=== PATIENT | female | born 1965 | race Caucasian/White ===

== ENCOUNTER 2017-01-25 18:35 | Emergency (ER) | payer BC ==
[~2017-01-25] VITALS: Ht 170.2 cm; Wt 77.0 kg
[2017-01-25 18:38] VITALS: BP 139/75; PULSE 80; RESP 22; TEMP 98.2; O2SAT 98
[2017-01-25] MEDS ORDERED: AUGM875T3 PO (19:14)
[2017-01-25] MEDS ORDERED: PROPARACAINE HCL 0.5% OPHT SOLN 15 ML BTL EACH EYE ONE (19:15)
[2017-01-25] MEDS ORDERED: AMOXICILLIN/CLAVULANATE K 875 MG TAB PO ONE (19:15)
[2017-01-25] MEDS ORDERED: TETANUS/DIPHTHERIA TOXOID ADULT 0.5 ML VIAL IM ONE (19:15)
--- NOTE | 2017-01-25 19:20 | PD ---
HPI Chief Complaint: Eye Problems/Injury Time Seen by Provider: 19:09 Travel History International Travel<30 days: No Contact w/Intl Traveler<30days: No Traveled to known affect area: No History of Present Illness HPI 51-year-old white female presents to emergency department for evaluation of a cat scratch. She states that just prior to arrival her house cat scratched her in the right face. It was very close the eye and would like to be evaluated. She denies any ocular pain. No blurred vision or double vision. She has not had a tetanus shot over 5 years. She states the skin around her right eye is burning. She does not wear glasses or contacts. Pain is mild. PFSH Past Medical History Narrative Medical Gallstones Cancer: No Cardiovascular Problems: No Diabetes: No Glaucoma: No Hepatitis: No Hiatal Hernia: No Hypertension: No Respiratory: No Thyroid Disease: No Tetanus Vaccination: > 5 Years ?: Not : 2 Para: 2 Dilation and Curettage (D&C): Yes (2007) Past Surgical History Narrative Surgical Cholecystectomy Cholecystectomy: Yes Pacemaker: No Other Surgery: Yes Social History Alcohol Use: No Tobacco Use: No Substance Use: No Allergies-Medications (Allergen,Severity, Reaction): Coded Allergies: No Known Allergies (Unverified Adverse Reaction, Unknown, 01/25/17) Reported Meds & Prescriptions Reported Meds & Active Scripts Active Augmentin (Amoxicillin-Clavulanate) 875-125 Mg Tab 1 Tab PO BID Review of Systems General / Constitutional: No: Fever Eyes: No: Diploplia, Blurred Vision, Drainage, Redness, Foreign Body Sensation , Pain, Tearing, Visual changes, Blindness HENT: No: Headaches Cardiovascular: No: Chest Pain or Discomfort Respiratory: No: Shortness of Breath Gastrointestinal: No: Abdominal Pain Genitourinary: No: Dysuria Musculoskeletal: No: Pain Skin: No Rash Neurologic: No: Weakness Psychiatric: No: Depression Endocrine: No: Polydipsia Hematologic/Lymphatic: No: Easy Bruising Physical Exam Narrative GENERAL: Well-developed, well-nourished in no acute distress. Nontoxic appearing. HEAD: Normocephalic, patient has superficial scratches around the right lateral eye EYES: Pupils equal round and reactive. Extraocular motions intact. No scleral icterus. No injection or drainage. ENT: TMs clear without erythema. The external auditory canals clear. Nose: clear . Posterior pharynx is pink and moist. No tonsillar edema or exudate. Uvula midline. Airway patent. Fluorescein stain is negative for corneal abrasion. Lids are flipped and no foreign body seen. NECK: Trachea midline.Supple, nontender, moves head freely. No central bony tenderness or spasm. CARDIOVASCULAR: Regular rate and rhythm without murmurs, gallops, or rubs. RESPIRATORY: Clear to auscultation. Breath sounds equal bilaterally. No wheezes , rales, or rhonchi. GASTROINTESTINAL: Abdomen soft, non-tender, nondistended. No hepato-splenomegaly , or palpable masses. No guarding. EXTREMITIES: No clubbing, cyanosis, or edema. No joint tenderness, effusion, or edema noted. BACK: Nontender without deformity or crepitance. No flank tenderness. Data Data Last Documented VS Vital Signs Date Time Temp Pulse Resp B/P (MAP) Pulse Ox O2 Delivery O2 Flow Rate FiO2 01/25/17 18:38 98.2 80 22 139/75 (96) 98 Orders Orders Proparacaine 0.5% Opth Soln (Alcaine 0.5 (01/25/17 19:15) Tetanus/Diphtheria Tox Adult (Tetanus/Di (01/25/17 19:15) Amoxicil-Clavulanate (Augmentin) (01/25/17 19:15) MDM Medical Decision Making Medical Screen Exam Complete: Yes Emergency Medical Condition: Yes Medical Record Reviewed: Yes Differential Diagnosis MDM: High Differential diagnoses: Fracture, sprain, strain, dislocation, contusion, neurovascular injury, CAT Scratch, CAT bite Narrative Course Patient's tetanus status updated. She is given Augmentin 875 by mouth. There is no evidence of an ocular injury. She has a scratch around the face. No deep injury. This is Scratch right face Diagnosis Primary Impression: cat scratch right face Patient Instructions: General Instructions Additional Instructions: Rest. Elevation. Tylenol and Advil for pain. Daily wound care with soap, water, Neosporin. Augmentin. Follow-up with a medical doctor in 3-5 days for recheck. Return to the ER if any problems. Med/Other Pt SpecificInfo: Prescription(s) given, Wound Care Scripts Amoxicillin-Clavulanate (Augmentin) 875-125 Mg Tab 1 TAB PO BID for Infection, #14 TAB 0 Refills Prov: Abraham Catalan MD 01/25/17 Disposition: 01 DISCHARGE HOME Condition: Stable Brent Rowan Jan 25, 2017 19:20
== END 2017-01-25 19:40 | disposition home or self-care (01) ==
LOC: NEPK 18:35
DX: S00.81XA Abrasion of other part of head, initial encounter (principal); Z23 Encounter for immunization; W55.03XA Scratched by cat, initial encounter
CPT/HCPCS: 90471; 90714

== ENCOUNTER → 2017-06-24 | Outpatient (CLI) | payer BC ==
[~2017-06-24] MED LIST: ALBU6.7H INH; AUGM875T3 PO; CHOL500022 PO; VITA500S3 SL
--- NOTE | 2017-06-25 16:14 | EKG ---
Date Performed: 06/24/2017 Time Performed: 13:39:50 PTAGE: 52 years EKG: SINUS BRADYCARDIA BORDERLINE ECG NO PREVIOUS TRACING DOCTOR: Derrick Castellanos Interpretating Date/Time 06/25/2017 16:10:04
== END ==
LOC: CPRE 13:04
PROVIDERS: ATTEND Obstetrics & Gynecology
DX: Z01.810 Encounter for preprocedural cardiovascular examination (principal); N92.0 Excessive and frequent menstruation with regular cycle; D50.0 Iron deficiency anemia secondary to blood loss (chronic); N83.202 Unspecified ovarian cyst, left side; R94.31 Abnormal electrocardiogram [ECG] [EKG]
CPT/HCPCS: 93005

== ENCOUNTER 2017-06-26 10:13 | Observation (INO) | payer BC ==
--- NOTE | 2017-06-25 12:14 | MH ---
cc: José Luis Pride MD DATE OF ADMISSION: 06/26/2017 ADMITTING DIAGNOSIS: Menorrhagia, dysmenorrhea and anemia with a left ovarian cyst and probable endometrial polyps. HISTORY OF PRESENT ILLNESS: The patient is a 52-year-old white female, para 2-0-0-2, who has had recurrent menorrhagia, dysmenorrhea, refractory to medical therapy and previous conservative surgery. She is now admitted for surgical treatment. PAST SURGICAL HISTORY: 1. She had laparoscopic cholecystectomy 02/12/2016. 2. She had hysteroscopy, D and C, laparoscopy in 2008 and for a while, did well on OCPs. Her findings at that time were consistent with adenomyosis. 3. Additional surgery included nasal fracture repair at age 18. 4. Right third finger cyst at age 18. MEDICATIONS: Vitamins. ALLERGIES: NONE. TRANSFUSIONS: None. SERIOUS MEDICAL ILLNESS: History of benign hematuria dated about 2005. OB HISTORY: Two vaginal deliveries. SOCIAL HISTORY: x 24 years. [place] [facility]. Alcohol, tobacco and drugs are none. FAMILY HISTORY: Noncontributory. PHYSICAL EXAMINATION: GENERAL: A well-nourished, well-developed white female. VITAL SIGNS: Stable: HEENT: Exam is normal. CHEST: Clear. HEART: Regular rate. BREASTS: Symmetrical. ABDOMEN: Benign. PELVIC: Vagina is normal. Cervix is normal. The uterus is about 12 weeks' size. Adnexa nonpalpable. ASSESSMENT: As above. PLAN: She is now admitted for dilation and curettage, frozen section, laparoscopy with probable laparoscopic-assisted supracervical hysterectomy, bilateral salpingo-oophorectomy, possible total abdominal hysterectomy with bilateral salpingo-oophorectomy. We have discussed the need for postoperative estrogen replacement therapy. She would like to proceed. The risks, benefits and complications including but not limited to , infection, bleeding, transfusion were explained and accepted. MD SANDIE Roque/SB , 02:01 PM , 02:22 PM
[~2017-06-26] VITALS: Ht 170.2 cm; Wt 79.0 kg
[2017-06-26] MEDS ORDERED: SODIUM CHLORID 0.9% 500 ML IV PRN (11:45)
[2017-06-26] MEDS ORDERED: LACTATED RINGER'S 1000 ML IV PRN (11:45)
[2017-06-26] MEDS ORDERED: POVIDONE IODINE 5% (ANTISEPSIS KIT) 4 APPLICATIONS EACH NARE PRN (11:45)
[2017-06-26] MEDS ORDERED: CHLORHEXIDINE GLUCONATE 2 % 1 PACK (2 CLOTHS) TOPICAL PRN (11:45)
[2017-06-26] MEDS ORDERED: ACETAMINOPHEN 1000 MG/100 ML 100 ML IV SCH (11:45)
[2017-06-26] MEDS ORDERED: METOPROLOL TARTRATE 25 MG TAB PO PRN (11:45)
[2017-06-26] MEDS ORDERED: KETOROLAC TROMETHAMINE 30 MG/ML (IVP) VIAL IV PUSH ONE (12:00)
[2017-06-26] MEDS ORDERED: LACTATED RINGER'S 1000 ML INJ 2,000 ML IV ONE (12:00)
[2017-06-26] MEDS ORDERED: DEXAMETHASONE SOD PHOS 4 MG/ML VIAL IV ONE (12:00)
[2017-06-26] MEDS ORDERED: PROPOFOL 200 MG/20 ML AMP IV ONE (12:00)
[2017-06-26] MEDS ORDERED: GLYCOPYRROLATE 1 MG/5 ML SYRINGE IV PUSH ONE (12:00)
[2017-06-26] MEDS ORDERED: PHENYLEPH/NS 1000 MCG/10 ML SYR IV ONE (12:00)
[2017-06-26] MEDS ORDERED: ROCURONIUM INJ 50 MG/5 ML SYRINGE IV PUSH ONE (12:00)
[2017-06-26] MEDS ORDERED: ePHEDrine/NS 25 MG/5 ML SYRINGE IV ONE (12:00)
[2017-06-26] MEDS ORDERED: NEOSTIGMINE 5 MG/5 ML SYRINGE IV PUSH ONE (12:00)
[2017-06-26] MEDS ORDERED: ONDANSETRON HCL 4 MG/2 ML VIAL IV PUSH ONE (12:00)
[2017-06-26] MEDS ORDERED: LIDOCAINE HCL 1% PF 5 ML SYRINGE OTHER ONE (12:00)
[2017-06-26] MEDS ORDERED: CEFAZOLIN INJ 2,000 MG in SODIUM CHLORIDE 0.9% INJ 100 ML IV SCH (12:15)
[2017-06-26] MEDS ORDERED: KETAMINE HCL 500 MG/10 ML VIAL ONE (13:56)
[2017-06-26] MEDS ORDERED: D5-1/2 NS + KCL 20 MEQ INJ 1,000 ML IV SCH (15:21)
[2017-06-26] MEDS ORDERED: DOCUSATE SODIUM 100 MG CAP PO SCH (15:30)
[2017-06-26] MEDS ORDERED: HYDROmorphone HCL PF 1 MG/ML VIAL IV PUSH PRN (15:30)
[2017-06-26] MEDS ORDERED: diphenhydrAMINE HCL 25 MG CAP PO PRN (15:30)
[2017-06-26] MEDS ORDERED: ZOLPIDEM TARTRATE 5 MG TAB PO PRN (15:30)
[2017-06-26] MEDS ORDERED: PROMETHAZINE INJ 25 MG/ML VIAL IM PRN (15:30)
[2017-06-26] MEDS ORDERED: ONDANSETRON HCL 4 MG/2 ML VIAL IV PUSH PRN (15:30)
[2017-06-26] MEDS ORDERED: MIDAZOLAM HCL 2 MG/2 ML VIAL ONE (15:55)
[2017-06-26] MEDS ORDERED: *HYDROmorphone PF 1 MG VIAL PERIprocedural Use ONLY ONE ×2 (16:00→16:13)
[2017-06-26] MEDS ORDERED: *MEPERIDINE 25 MG INJ VIAL PERIprocedural Use ONLY ONE (16:08)
--- NOTE | 2017-06-26 16:10 | MP ---
cc: José Luis Pride MD DATE OF OPERATION: 06/26/2017 PREOPERATIVE DIAGNOSES: Menorrhagia, dysmenorrhea, and anemia. POSTOPERATIVE DIAGNOSES: Menorrhagia, dysmenorrhea, and anemia. PROCEDURE PERFORMED: D and C, frozen section followed by a laparoscopic-assisted supracervical hysterectomy, bilateral salpingo-oophorectomy. ANESTHESIA: General, ET. SURGEON: José Luis Pride MD SALES SUPPORT ASSOCIATE: MISHA Rosales ESTIMATED BLOOD LOSS FOR THE PROCEDURE: 900 mL. FLUIDS: 2.3 liters crystalloid. OBJECTIVE FINDINGS: Following induction of adequate general endotracheal anesthesia, the patient was prepped and draped supine on the operating table in dorsal lithotomy in the usual sterile fashion with the bladder being drained by Prabhakar catheterization. Exam under anesthesia revealed about a 12-week sized uterus. Adnexa not palpable. A heavy weighted speculum was placed on the posterior fornix of the vagina. The anterior lip of the cervix was grasped with a single-tooth tenaculum. The cervix and uterus sounded to 9 cm. The cervix was then dilated to a #20 Hanks dilator. The endocervical curettings were obtained with a small serrated curette for permanent study, endometrium with a small sharp curette for frozen section. The cervical tenaculum sites were sutured with 3-0 chromic, the vaginal instruments were removed, the paperback machine operator's gloves were changed. The abdomen was opened through a 3 cm curving infraumbilical incision using the knife cut down through the skin to the fascia. The fascia was opened transversely. The peritoneum was opened with blunt dissection finger tip and the mini GelPort placed, laparoscope inserted. A 5 port was placed in the left lower quadrant, AirSeal in the right lower quadrant. The uterus was about 12-weeks sized, symmetrically enlarged consistent with adenomyosis. Tubes and ovaries were normal. [place]-de-sacs were clear. Liver edge was normal. Working first on the left, harmonic scalpel was used to take the left uteroovarian pedicle, the left round ligament, left broad ligament, left side of the bladder flap and the left uterine vessels. On the right side, the harmonic scalpel was used to take the right ovarian vessels, right round ligament, right broad ligament, right side of the bladder flap and right uterine vessels. Harmonic scalpel was now used to amputate the fundus from the cervix and the pouch was used to extract the fundus and right tube and ovary. One area of bleeding on the left cervix was producing steady bleeding; this would not respond to the harmonic scalpel, so was sutured with a Quill stitch of 2-0 Vicryl. The left tube and ovary were now removed with the harmonic scalpel and extracted through the GelPort site. Of note, the patient had been prone to back-bleeding throughout the procedure. Inspection of the ureters revealed good peristalsis, no compromise. The operative sites were coated with hemostatic agent powder and Evicel. The scope was then removed. The GelPort removed. The peritoneum was closed with a running 2-0 Vicryl. The fascia with a running locking stitch of 0 Vicryl from corners to midline and tied with Aurora placed below the fascia for hemostasis. The subcutaneous was closed with running 3-0 Vicryl and the skin with a running 3-0 Monocryl. The scope was now reinserted through the lower port site and used to inspect the GelPort site was well closed. The pelvis was inspected; there was no bleeding. The scope was removed, the gas was allowed to escape and the small ports closed with 3-0 Monocryl. Dermabond applied. All counts were correct and the patient was awakened and taken to the recovery room in good condition. MD SANIDE Roque/CATRACHITA , 03:29 PM , 04:08 PM
[2017-06-26] MEDS ORDERED: LORazepam 2 MG/ML VIAL IV ONE (16:15)
[2017-06-26] MEDS ORDERED: LORazepam 2 MG/ML VIAL ONE (16:19)
[2017-06-26] MEDS ORDERED: KETOROLAC TROMETHAMINE 30 MG/ML (IVP) VIAL IVP SCH (17:00)
[2017-06-26] MEDS ORDERED: ONDANSETRON INJ 8 MG in DEXTROSE 5% IN WATER INJ 50 ML IV PUSH PRN ×2 (17:15)
[2017-06-26] MEDS ORDERED: ONDANSETRON INJ 8 MG in DEXTROSE 5% IN WATER INJ 50 ML IV PRN ×2 (18:00)
[2017-06-26] MEDS ORDERED: ALBUTEROL SULFATE 90 MCG/ACT HFA 8 GM INHALER INH PRN (18:15)
[2017-06-26 18:20] VITALS: BP 109/67; PULSE 72; RESP 16; TEMP 97.7; O2SAT 94
[2017-06-26 18:45] LABS: HEMOGLOBIN 9.4 GM/DL (11.6-15.3)
[2017-06-26] MEDS: ACETAMINOPHEN 1000 MG/100 ML VIAL IV SCH (20:52)
[2017-06-26 21:02] VITALS: BP 110/63; PULSE 72; RESP 18; TEMP 97.9
[2017-06-26] MEDS: KETOROLAC TROMETHAMINE 30 MG/ML (IVP) VIAL IVP SCH (23:18)
[2017-06-27 00:18] VITALS: BP 97/59; PULSE 64; RESP 18; TEMP 97.6
[2017-06-27 03:58] VITALS: BP 106/49; PULSE 76; RESP 18; TEMP 98.2
[2017-06-27] MEDS: ACETAMINOPHEN 1000 MG/100 ML VIAL IV SCH (05:17)
[2017-06-27 05:49] LABS: AUTOMATED NEUTROPHIL # 10.1 TH/MM3 (1.8-7.7); BASOPHIL % 0.2 % (0.0-2.0); HEMATOCRIT 28.2 % (35.0-46.0); HEMOGLOBIN 9.1 GM/DL (11.6-15.3); LYMPH % 8.6 % (9.0-44.0); MEAN CELL VOLUME 66.8 FL (80.0-100.0); MEAN CORPUSCULAR HEMOGLOBIN 21.6 PG (27.0-34.0); MEAN CORPUSCULAR HGB CONC 32.4 % (32.0-36.0); MEAN PLATELET VOLUME 8.8 FL (7.0-11.0); MONO % 7.2 % (0.0-8.0); MONOCYTE # 0.9 TH/MM3 (0-0.9); PLATELET COUNT 202 TH/MM3 (150-450); RED BLOOD COUNT 4.23 MIL/MM3 (4.00-5.30); RED CELL DISTRIBUTION WIDTH 30.1 % (11.6-17.2)
[2017-06-27 06:17] LABS: BICARBONATE 22.2 MEQ/L (21.0-32.0); CALCIUM 7.9 MG/DL (8.5-10.1); CREATININE 0.71 MG/DL (0.50-1.00)
[2017-06-27 07:18] LABS: OVALOCYTES 2+ (NORMAL)
[2017-06-27 08:30] VITALS: BP 105/64; PULSE 72; RESP 16; TEMP 98; O2SAT 99
[2017-06-27] MEDS: KETOROLAC TROMETHAMINE 30 MG/ML (IVP) VIAL IVP SCH (09:00)
[2017-06-27] MEDS ORDERED: ACETAMINOPHEN 1000 MG/100 ML VIAL IV SCH (13:00)
== END 2017-06-27 14:01 | disposition home or self-care (01) ==
LOC: HSDC 10:13 → HSDI 15:23 → H1EA 18:15
PROVIDERS: ADMIT Obstetrics & Gynecology; ATTEND Obstetrics & Gynecology
DX: N92.0 Excessive and frequent menstruation with regular cycle (principal); N94.6 Dysmenorrhea, unspecified; D64.9 Anemia, unspecified; N83.8 Other noninflammatory disorders of ovary, fallopian tube and broad ligament; N83.01 Follicular cyst of right ovary; N83.12 Corpus luteum cyst of left ovary; N83.292 Other ovarian cyst, left side; N83.291 Other ovarian cyst, right side
CPT/HCPCS: 00840; 58542; 80048; 85014; 85018; 85025; 86850; 86900; 86901; 88305; 88307; 88331; 94150; 96374; 96375; 96376; G0378; J0131; J1100; J1170; J1885; J2060; J2175; J2250; J2370; J2405; J2710; J3010; J3480; J7120